=== PATIENT | male | born 1990 | race Caucasian/White ===

== ENCOUNTER 2019-02-22 01:44 | Emergency (ER) | payer OTHER ==
[~2019-02-22] VITALS: Ht 182.9 cm; Wt 121.1 kg
[2019-02-22 01:45] VITALS: BP 132/91
[2019-02-22] MEDS ORDERED: APAP325T4 PO (01:53)
[2019-02-22] MEDS ORDERED: NAPR-837 PO (03:06)
[2019-02-22] MEDS ORDERED: ROBA500T PO (03:06)
[2019-02-22] MEDS ORDERED: NAPROXEN 250 MG TAB PO ONE (03:15)
[2019-02-22] MEDS ORDERED: METHOCARBAMOL 750 MG TAB PO ONE (03:15)
--- NOTE | 2019-02-22 14:31 | REP ---
RIGHT SHOULDER, THREE VIEWS: There is no evidence of an acute fracture, dislocation or intrinsic bone disease. IMPRESSION: No fracture or dislocation. Electronically Signed by Rohit Perez MD 02/22/2019 03:56 P
== END 2019-02-22 03:32 | disposition home or self-care (01) ==
LOC: M ED 01:44
DX: M25.511 Pain in right shoulder (principal); Z88.0 Allergy status to penicillin

== ENCOUNTER → 2020-09-26 | Outpatient (CLI) | payer OTHER ==
[~2020-09-26] MED LIST: APAP325T4 PO; NAPR-837 PO; ROBA500T PO
--- NOTE | 2020-09-28 13:50 | SLEEPCENT ---
DATE OF SERVICE: 08/27/2020 ORDERED BY: Roberta Turner, 's Administration Nocturnal polysomnography was performed for evaluation of sleep problems of longstanding with snoring and irregular breathing episodes in this patient with an Gruver Sleepiness Scale of 14. There was 6 hours and 38 minutes of data reviewed. There was 322.5 minutes of sleep identified. Sleep latency was prolonged at 44 minutes. REM latency was normal at 73 minutes. Sleep architecture showed some fragmentation and poor progression. There were three brief REM cycles noted. Overall sleep efficiency was 81.9%. The electrocardiogram showed a sinus rhythm with an average heart rate of 60 beats per minute. Rate ranged 40-80. EEG showed significant coarsening in the background waveforms. No focal events were appreciated, and there were normal waveforms for wake and sleep. There were 53 respiratory events identified of 10 seconds in duration or greater for an apnea-hypopnea index of 9.9. The events were obstructive, not exclusive to sleeps stage, not exclusive to sleep position. Arousals from respiratory events were seen 1.5 times per hour, and oxygen desaturations were seen below 90%. IMPRESSION: Obstructive sleep apnea syndrome (G47.33). Apnea-hypopnea index 9.9. RECOMMENDATION: The patient should be encouraged to return to the sleep disorder center for optimal titration of pressure therapy. In the interim, alcohol and sedative avoidance should be practiced and caution exercised during the operation of motor vehicles. MTDD
== END ==
LOC: M SLEEP 08-27 20:00
PROVIDERS: ATTEND Physician Assistant Medical
DX: G47.33 Obstructive sleep apnea (adult) (pediatric) (principal)